=== PATIENT | male | born 1970 | race Caucasian/White ===

== ENCOUNTER 2017-03-16 09:45 | Emergency (ER) | payer MEDICARE ==
--- NOTE | ~2017-03-16 | EKG ---
PATIENT: LULY WARE UNIT #: [id number] Ventricular Rate: 75 BPM Atrial Rate: 75 BPM P-R Interval: 154 ms QRS Duration: 100 ms Q-T Interval: 396 ms QTC Calculation(Bezet): 442 ms P [place]: 44 degrees Calculated R [place]: -18 degrees Calculated T [place]: 80 degrees Diagnosis Line: Normal sinus rhythm Diagnosis Line: Normal ECG Diagnosis Line: No previous ECGs available Diagnosis Line: Confirmed by RONNI HOWELL MD ([id number]) on Diagnosis Line: 03/17/2017 10:36:39 AM INTERPRETING MD: DANTE DISLA
[~2017-03-16 09:45] MED LIST: ?BP MED; ANTIVERT PO; ASPIRIN; ASPIRIN81 M1 PO; BACTRIM DS TABL1 TA1 PO; ENALAPRIL PO; IBUPROFEN800 MG PO; INDOMETHACIN25 MG PO; KEFLEX PO; LOPID600 MG PO; LORTAB 5/500 TA1 TA1 PO; LORTAB 5/500 TA1 TA2 PO; PLAVIX300 MG PO; VOLTAREN75 MG PO; [UNRECOGNIZED DRUG - OTHER]
[2017-03-16 10:32] LABS: BASOPHIL% 0.9 % (0-2.5); EOSINOPHIL# 0.1 X10e3 (0-0.7); HEMATOCRIT 47.8 % (38.0-50.0); HEMOGLOBIN 15.8 gm/dL (13.0-16.0); LYMPHOCYTE# 1.5 X10e3 (1.0-3.5); LYMPHOCYTE% 28.3 % (17.0-45.0); MEAN CELL VOLUME 83.7 FL (83-96); MEAN CORPUSCULAR HEMOGLOBIN 27.6 PG (28-34); MEAN PLATELET VOLUME 8.7 FL (6.5-11.5); MONOCYTE# 0.4 X10e3 (0-1.0); MONOCYTE% 8.3 % (3.0-12.0); NEUTROPHIL# 3.2 X10e3 (1.5-7.1); NEUTROPHIL% 61.5 % (40-75); PLATELET COUNT 197 X10e3 (140-420); RED BLOOD COUNT 5.71 X10e (3.90-5.60); RED CELL DISTRIBUTION WIDTH 14.4 % (11.0-15.5); WHITE BLOOD COUNT 5.2 X10e3 (4.0-10.5)
[2017-03-16 10:34] LABS: DIFF IND NO
[2017-03-16 11:13] LABS: ALBUMIN SERUM 4.1 g/dL (3.5-5.0); BILIRUBIN, DIRECT 0.1 mg/dL (0.0-0.2); BILIRUBIN,INDIRECT 0.9 mg/dL (0.0-0.9); BUN/CREATININE RATIO 11.81; CALCIUM SERUM 9.1 mg/dL (8.4-10.2); CREATININE SERUM 1.1 mg/dL (0.6-1.4); GLOM FILT RATE Estimated 80.1 mL/min (>60); POTASSIUM 4.1 mmol/L (3.5-5.1); PROTEIN TOTAL SERUM 7.3 g/dL (6.0-8.3)
[2017-03-16 12:01] LABS: POC - TROPONIN <0.05 ng/mL (<=0.05)
[2017-05-23] MEDS ORDERED: BAYER ASPIRIN325 M1 PO (19:25)
[2017-05-23] MEDS ORDERED: VASOTEC20 MG PO (19:25)
== END 2017-03-16 13:26 | disposition home or self-care (01) ==
LOC: CED 09:45 → EDBD 13:03 → CED 13:03
DX: I10 Essential (primary) hypertension (principal); Z86.73 Personal history of transient ischemic attack (TIA), and cerebral infarction without residual deficits; Z90.49 Acquired absence of other specified parts of digestive tract; F17.200 Nicotine dependence, unspecified, uncomplicated; M54.5 Low back pain
CPT/HCPCS: 36415; 80048; 80076; 82553; 84484; 85025; 93005; 99283